=== PATIENT | female | born 1940 | race Caucasian/White ===

== ENCOUNTER 2021-04-08 18:32 | Inpatient (IN) | payer OTHER ==
[2021-04-08] MEDS ORDERED: ACETAMINOPHEN 500 MG TAB ONE (19:45)
[2021-04-08] MEDS ORDERED: ONDANSETRON 4 MG/2 ML VIAL ONE (19:46)
[2021-04-08] MEDS ORDERED: MORPHINE 2 MG/ML SYR ONE (19:46)
[2021-04-08] MEDS ORDERED: NA CHLORIDE 0.9% 500 ML ONE (19:47)
[2021-04-08] MEDS ORDERED: TETANUS & DIPHTHERIA TOX,ADULT 0.5 ML VIAL ONE (19:47)
[2021-04-08] MEDS ORDERED: NA CHLORIDE 0.9% 100 ML ONE (19:47)
[2021-04-08 20:05] LABS: Basophils % 0.4 % (0-1.3); Hematocrit 32.5 % (36.0-45.0); Lymphocytes % 7.1 % (15.3-44.8); MPV 7.8 fL (7.6-11.3); RBC Red Blood Cell Count 3.65 M/uL (3.86-4.86)
[2021-04-08] MEDS ORDERED: AMPICILLIN/SULBACTAM 3GM/VIAL ONE (20:27)
[2021-04-08 20:33] LABS: Albumin 3.9 g/dL (3.4-5.0); Bilirubin Direct 0.1 mg/dL (0-0.2); Bilirubin Total 0.6 mg/dL (0.2-1.0); Potassium 4.1 mmol/L (3.5-5.1); Protein, Total 8.7 g/dL (6.4-8.2)
[2021-04-08 20:34] LABS: Protime INR 1.18
[2021-04-08 21:08] LABS: Urine Blood 1+ (Negative); Urine Glucose Negative (Negative); Urine Protein Negative (Negative)
[2021-04-08 21:16] LABS: Blood Morphology Comment NOT SEEN (NOT SEEN); Platelet Estimate ADEQ; White Blood Cell Scan OK (OK)
--- NOTE | 2021-04-08 21:18 | ER ---
Nurse's Notes [facility] Name: Delia Beverly Age: 80 yrs Sex: Female : 1940 Arrival Date: 04/08/2021 Time: 18:33 Bed 7 Private MD: Karolyn Chung C Diagnosis: Dog Bite, Left Hand, Puncture wound, Palmar Laceration, Cellulitis, Lymphangitis Presentation: 04/08 18:36 Chief complaint: Patient states: Fever, fatigued. Bitten by dog 3day ago on left hand. ch5 Hand is red swollen and painful to touch. Coronavirus screen: Vaccine status: Patient reports receiving the 2nd dose of the covid vaccine. Ebola Screen: Patient negative for fever greater than or equal to 101.5 degrees Fahrenheit, and additional compatible Ebola Virus Disease symptoms Patient denies exposure to infectious person. Patient denies travel to an Ebola-affected area in the 21 days before illness onset. Initial Sepsis Screen: Does the patient meet any 2 criteria? No. Patient's initial sepsis screen is negative. Does the patient have a suspected source of infection? Yes: Other: Left hand. Risk Assessment: Do you want to hurt yourself or someone else? Patient reports no desire to harm self or others. 18:36 Method Of Arrival: EMS: [facility] 18:36 Acuity: KESHIA 3 ch5 20:22 Onset of symptoms was April 06, 2021. cw2 Triage Assessment: 18:39 General: Appears in no apparent distress. Behavior is calm, cooperative. Pain: ch5 Complains of pain in dorsal aspect of proximal phalanx of left little finger and inner aspect of left palm Pain currently is 5 out of 10 on a pain scale. Historical: - Allergies: 18:39 No Known Allergies; ch5 - Home Meds: 18:39 carvedilol 6.25 mg oral tab 1 tab 2 times per day [Active]; amlodipine 5 mg tab 1 tab ch5 BID for hypertension [Active]; - Immunization history:: Adult Immunizations up to date, Client reports receiving the 2nd dose of the Covid vaccine. - Social history:: Smoking status: Patient denies any tobacco usage or history of. Screenin:41 Abuse screen: Denies threats or abuse. Denies injuries from another. Nutritional ch5 screening: No deficits noted. Tuberculosis screening: No symptoms or risk factors identified. Fall Risk None identified. Assessment: 18:41 Reassessment: No changes from previously documented assessment. Pt admitted to taking ch5 all meds as directed. Left hand pain is 5/10 and increases with touch.. 20:20 General: Appears in no apparent distress. Behavior is calm, cooperative. Pain: cw2 Complains of pain in left hand Pain does not radiate. Pain currently is 5 out of 10 on a pain scale. Quality of pain is described as sharp, Pain began Is. Neuro: No deficits noted. Cardiovascular: No deficits noted. Rhythm is regular. Respiratory: No deficits noted. GI: No deficits noted. : No deficits noted. Injury Description: Bite sustained to left hand caused by a dog, is infected, was sustained 2 days ago. 23:15 Reassessment: Patient and/or family updated on plan of care and expected duration. Pain wg level reassessed. Pt ambulated to bathroom. Steady gait. Pt placed back on monitor. Bed down, rails up, call light in reach. Vital Signs: 18:36 BP 171 / 76; Pulse 90; Resp 18; Temp 100.4; Pulse Ox 95% on R/A; Weight 75.3 kg; Height ch5 5 ft. 5 in. (165.10 cm); Pain 5/10; 18:41 BP 142 / 55 RA Supine (auto/reg); Pulse 86; Resp 17 S; Temp 100.4(O); Pulse Ox 97% on ch5 R/A; Weight 75.3 kg; Height 5 ft. 5 in. (165.10 cm); Pain 5/10; 20:00 BP 141 / 57; Pulse 85; Resp 17; Temp 99.0; Pulse Ox 98% on R/A; cw2 21:23 Pain 3/10; cw2 22:00 BP 152 / 83; Pulse 78; Resp 17; Pulse Ox 98% on R/A; Pain 2/10; cw2 23:16 BP 134 / 60; Pulse 74; Resp 18; Pulse Ox 99% on R/A; Pain 0/10; wg 18:41 Body Mass Index 27.62 (75.30 kg, 165.10 cm) ch5 Vitals: 20:00 Cardiac Rhythm Assessment Regular Sinus rhythm. cw2 [place] Coma Score: 20:00 Eye Response: spontaneous(4). Verbal Response: oriented(5). Motor Response: obeys cw2 commands(6). Total: 15. ED Course: 18:33 Patient arrived in ED. am2 18:33 Prieto Trejo, ANDRE is Primary Nurse. ch5 18:33 Karolyn Chung MD is Private Physician. am2 18:39 Triage completed. ch5 18:39 Arm band placed on right wrist. ch5 18:41 Patient has correct armband on for positive identification. Bed in low position. Call 5 light in reach. Side rails up X2. Adult w/ patient. 19:04 Lele Khan MD is Attending Physician. 7 19:53 Hand Left 3 View XRAY In Process Unspecified. EDMS 20:17 Wound Culture Sent. cw2 20:17 Wound culture swab sent to lab. Inserted saline lock: 20 gauge in right antecubital cw2 area, using aseptic technique. Blood collected. 20:19 Door closed. Noise minimized. Moved to private room. Warm blanket given. PO fluids cw2 given. 20:19 Patient maintains SpO2 saturation greater than 95% on room air. cw2 21:06 Protime (+inr) Sent. wg 21:06 LFT's Sent. wg 21:06 Basic Metabolic Panel Sent. wg 21:06 CBC with Diff Sent. wg 21:15 Karolyn Chung MD is Hospitalizing Provider. [facility] 21:33 COVID-19 : Document "Date of Symptom Onset" if Symptomatic. Sent. wg 22:38 No provider procedures requiring assistance completed. cw2 22:38 Patient admitted, IV remains in place. cw2 Administered Medications: 20:00 Drug: Tylenol 1000 mg Route: PO; cw2 21:25 Follow up: Response: No adverse reaction cw2 20:00 Drug: morphine 2 mg Route: IVP; Site: right antecubital; cw2 21:23 Follow up: Pain 3/10 Adult cw2 20:05 Drug: Unasyn (ampicillin-sulbactam) 3 grams Route: IVPB; Infused Over: 30 mins; Site: cw2 right antecubital; 21:29 Follow up: IV Status: Completed infusion; IV Intake: 500ml cw2 20:06 Drug: NS 0.9% 500 ml Route: IV; Rate: bolus; Site: right antecubital; cw2 21:24 Follow up: IV Status: Completed infusion; IV Intake: 500ml cw2 20:06 Drug: Tetanus-Diphtheria Toxoid Adult 0.5 ml {Building Principal: [employer]. Exp: cw2 08/06/2021. Lot #: [id number]. } Route: IM; Site: right deltoid; 21:23 Follow up: Response: No adverse reaction cw2 20:07 Drug: Zofran (Ondansetron) 4 mg Route: IVP; Site: right antecubital; cw2 21:23 Follow up: Response: No adverse reaction cw2 21:24 Follow up: Response: Nausea is decreased cw2 Intake: 21:24 IV: 500ml; Total: 500ml. cw2 21:29 IV: 500ml; Total: 1000ml. cw2 Outcome: 20:22 Condition: good cw2 21:17 Decision to Hospitalize by Provider. [facility] 22:38 Admitted to Med/surg cw2 04/09 00:07 Patient left the ED. cw2 Signatures: Dispatcher [employer] EDMS Jessica Thomas Lele Sierra MD MD 7 Prieto Trejo, RN RN 5 Mauro Watt RN wg Williams, Christopher 2
--- NOTE | 2021-04-08 21:18 | EDPHYS ---
Physician Documentation [facility] Name: Delia Beverly Age: 80 yrs Sex: Female : 1940 Arrival Date: 04/08/2021 Time: 18:33 Bed 7 Private MD: Karolyn Chung C ED Physician Lele Khan HPI: 04/08 19:20 This 80 yrs old Female presents to ER via EMS with complaints of [facility] to [facility] Hand. Fever. 19:20 The patient was bitten on the left hand, by a dog, while approaching the animal, at [facility]. Onset: The symptoms/episode began/occurred 3 day(s) ago. Animal information: Animal's vaccinations are up to date. Secondary to the bite the patient reports erythema, a laceration, irregular shaped, pain, a puncture wound, that is moderate-sized, swelling, warmth. Associated signs and symptoms: Pertinent positives: erythema at site, fever, pain at site, swelling at site, tenderness, Nausea, generalized fatigue, Pertinent negatives: loss of consciousness, motor deficit, numbness distal to wound. Severity of symptoms: At their worst the symptoms were moderate, last night, in the emergency department the symptoms are unchanged. Patient states that she was bitten by her dog 3 days ago of the left hand. Since then she has developed swelling, pain, redness to the left hand that has now spread to the left forearm. She has also had fever, nausea, generalized fatigue since the dog bite occurred. She reports that the dogs immunizations are up-to-date including rabies vaccination. She denies any headache, chest pain, abdominal pain, cough, shortness of breath, vomiting, diarrhea, dizziness, numbness/tingling, or focal weakness.. Historical: - Allergies: 18:39 No Known Allergies; ch5 - Home Meds: 18:39 carvedilol 6.25 mg oral tab 1 tab 2 times per day [Active]; amlodipine 5 mg tab 1 tab ch5 BID for hypertension [Active]; - Immunization history:: Adult Immunizations up to date, Client reports receiving the 2nd dose of the Covid vaccine. - Social history:: Smoking status: Patient denies any tobacco usage or history of. ROS: 19:20 Eyes: Negative for injury, pain, redness, and discharge, ENT: Negative for injury, mh7 pain, and discharge, Neck: Negative for injury, pain, and swelling, Cardiovascular: Negative for chest pain, palpitations, and edema, Respiratory: Negative for shortness of breath, cough, wheezing, and pleuritic chest pain. 19:20 Back: Negative for injury and pain, : Negative for injury, bleeding, discharge, and swelling, Neuro: Negative for headache, weakness, numbness, tingling, and seizure, Psych: Negative for depression, anxiety, suicide ideation, homicidal ideation, and hallucinations, Allergy/Immunology: Negative for hives, rash, and allergies, Endocrine: Negative for neck swelling, polydipsia, polyuria, polyphagia, and marked weight changes, Hematologic/Lymphatic: Negative for swollen nodes, abnormal bleeding, and unusual bruising. 19:20 Abdomen/GI: Negative for abdominal pain, vomiting, diarrhea, constipation, abdominal cramps, abdominal distension, anorexia, dysphagia, hematemesis, black/tarry stool, rectal pain, rectal bleeding, bowel incontinence, flatulence. Exam: 19:20 Constitutional: This is a well developed, well nourished patient who is awake, alert, mh7 and in no acute distress. Head/Face: Normocephalic, atraumatic. Eyes: Pupils equal round and reactive to light, extra-ocular motions intact. Lids and lashes normal. Conjunctiva and sclera are non-icteric and not injected. Cornea within normal limits. Periorbital areas with no swelling, redness, or edema. Neck: Trachea midline, no thyromegaly or masses palpated, and no cervical lymphadenopathy. Supple, full range of motion without nuchal rigidity, or vertebral point tenderness. No Meningismus. Chest/axilla: Normal chest wall appearance and motion. Nontender with no deformity. No lesions are appreciated. Cardiovascular: Regular rate and rhythm with a normal S1 and S2. No gallops, murmurs, or rubs. Normal PMI, no JVD. No pulse deficits. Respiratory: Lungs have equal breath sounds bilaterally, clear to auscultation and percussion. No rales, rhonchi or wheezes noted. No increased work of breathing, no retractions or nasal flaring. Abdomen/GI: Soft, non-tender, with normal bowel sounds. No distension or tympany. No guarding or rebound. No evidence of tenderness throughout. Back: No spinal tenderness. No costovertebral tenderness. Full range of motion. 19:20 Neuro: Awake and alert, GCS 15, oriented to person, place, time, and situation. Cranial nerves II-XII grossly intact. Motor strength 5/5 in all extremities. Sensory grossly intact. Cerebellar exam normal. Normal gait. Psych: Awake, alert, with orientation to person, place and time. Behavior, mood, and affect are within normal limits. 19:20 Musculoskeletal/extremity: Extremities: noted in the left hand: bite, erythema, laceration, pain, puncture, swelling, tenderness, Healing laceration on lateral palmar aspect of hand and there is irregular shaped. There is swelling and erythema to the left hand fourth and fifth digits hand lateral aspect of left hand with erythema from hand to left volar forearm. There is no discharge from wound., ROM: intact in all extremities, Circulation is intact in all extremities. Sensation intact. Compartment Syndrome exam of affected extremity: is normal. no numbness, no tingling, no sensation deficit, no palor, no weak pulses, Joints: All joints appear normal with full range of motion. Weight bearing: able to fully bear weight, without difficulty. 19:20 Skin: cellulitis, that is moderate, irregular, on the left hand. Vital Signs: 18:36 BP 171 / 76; Pulse 90; Resp 18; Temp 100.4; Pulse Ox 95% on R/A; Weight 75.3 kg; Height ch5 5 ft. 5 in. (165.10 cm); Pain 5/10; 18:41 BP 142 / 55 RA Supine (auto/reg); Pulse 86; Resp 17 S; Temp 100.4(O); Pulse Ox 97% on ch5 R/A; Weight 75.3 kg; Height 5 ft. 5 in. (165.10 cm); Pain 5/10; 20:00 BP 141 / 57; Pulse 85; Resp 17; Temp 99.0; Pulse Ox 98% on R/A; cw2 21:23 Pain 3/10; cw2 22:00 BP 152 / 83; Pulse 78; Resp 17; Pulse Ox 98% on R/A; Pain 2/10; cw2 23:16 BP 134 / 60; Pulse 74; Resp 18; Pulse Ox 99% on R/A; Pain 0/10; wg 18:41 Body Mass Index 27.62 (75.30 kg, 165.10 cm) ch5 [place] Coma Score: 20:00 Eye Response: spontaneous(4). Verbal Response: oriented(5). Motor Response: obeys cw2 commands(6). Total: 15. MDM: 21:12 Differential diagnosis: superficial laceration, tendon injury, vascular injury, rabies, mh7 cellulitis. Rabies Status: Rabies immunization is not indicated. Data reviewed: vital signs, nurses notes, lab test result(s), CBC, electrolytes, radiologic studies, plain films. Data interpreted: Pulse oximetry: on room air is 98 %. Interpretation: normal. Counseling: I had a detailed discussion with the patient and/or guardian regarding: the historical points, exam findings, and any diagnostic results supporting the discharge/admit diagnosis, the presence of at least one elevated blood pressure reading (>120/80) during this emergency department visit, lab results, radiology results, the need for further work-up and treatment in the hospital. Response to treatment: the patient's symptoms have markedly improved after treatment. Physician consultation: Timbo Kyle MD was contacted at 21:00, regarding patient's condition, and will see patient in inpatient room, would like admission per Dr. Karolyn Chung MD. 21:17 Patient medically screened. [facility] 04/08 19:14 Order name: CBC with Diff [facility] 04/08 19:14 Order name: Basic Metabolic Panel [facility] 04/08 19:14 Order name: LFT's [facility] 04/08 19:14 Order name: Protime (+inr) [facility] 04/08 19:14 Order name: Ptt, Activated; Complete Time: 20:51 [facility] 04/08 19:14 Order name: Blood Culture Adult (2) [facility] 04/08 19:14 Order name: Lactate; Complete Time: 20:34 [facility] 04/08 19:14 Order name: Procalcitonin; Complete Time: 21:28 [facility] 04/08 19:15 Order name: CBC with Automated Diff; Complete Time: 21:28 [facility] 04/08 19:15 Order name: Basic Metabolic Panel; Complete Time: 20:34 [facility] 04/08 19:15 Order name: Liver (Hepatic) Function; Complete Time: 20:34 [facility] 04/08 19:15 Order name: Protime (+INR); Complete Time: 20:51 [facility] 04/08 19:33 Order name: Wound Culture [facility] 04/08 19:34 Order name: Wound Culture [facility] 04/08 19:14 Order name: Hand Left 3 View XRAY; Complete Time: 21:28 [facility] 04/08 21:07 Order name: Urine Dipstick-Ancillary; Complete Time: 21:28 [facility] 04/08 21:16 Order name: CBC Smear Scan; Complete Time: 21:28 [facility] 04/08 21:23 Order name: COVID-19 : Document "Date of Symptom Onset" if Symptomatic. lp1 04/08 21:27 Order name: CONS Physician Consult; Complete Time: 23:24 ED[facility] 04/08 21:27 Order name: EKG Electrocardiogram [facility] 04/08 22:28 Order name: SARS-COV-2 RT PCR EDMS Administered Medications: 20:00 Drug: Tylenol 1000 mg Route: PO; cw2 21:25 Follow up: Response: No adverse reaction cw2 20:00 Drug: morphine 2 mg Route: IVP; Site: right antecubital; cw2 21:23 Follow up: Pain 3/10 Adult cw2 20:05 Drug: Unasyn (ampicillin-sulbactam) 3 grams Route: IVPB; Infused Over: 30 mins; Site: cw2 right antecubital; 21:29 Follow up: IV Status: Completed infusion; IV Intake: 500ml cw2 20:06 Drug: NS 0.9% 500 ml Route: IV; Rate: bolus; Site: right antecubital; cw2 21:24 Follow up: IV Status: Completed infusion; IV Intake: 500ml cw2 20:06 Drug: Tetanus-Diphtheria Toxoid Adult 0.5 ml {[employer]: [employer] [facility]. Exp: cw2 08/06/2021. Lot #: [id number]. } Route: IM; Site: right deltoid; 21:23 Follow up: Response: No adverse reaction cw2 20:07 Drug: Zofran (Ondansetron) 4 mg Route: IVP; Site: right antecubital; cw2 21:23 Follow up: Response: No adverse reaction cw2 21:24 Follow up: Response: Nausea is decreased cw2 Disposition Summary: 04/08/21 21:17 Hospitalization Ordered Hospitalization Status: Inpatient Admission [facility] Provider: Chung, A mh7 Location: Telemetry/MedSurg (Inpatient) [facility] Condition: Stable mh7 Problem: new mh7 Symptoms: have improved mh7 Bed/Room Type: Standard [facility] Room Assignment: 204(04/08/21 23:04) cg Diagnosis - Dog Bite, Left Hand, Puncture wound, Palmar Laceration, Cellulitis, Lymphangitis [facility] Forms: - Medication Reconciliation Form mh7 - SBAR form [facility] Signatures: Dispatcher [employer] Adri Patel RN RN Lele Khan MD MD [facility] Prieto Trejo RN RN ch5 Prieto Dunlap cw2 Corrections: (The following items were deleted from the chart) 23:04 21:17 7 cg
--- NOTE | 2021-04-08 21:20 | RAD REPORT ---
EXAM DESCRIPTION: RAD - Hand Left 3 View - 04/08/2021 7:53 pm CLINICAL HISTORY: Swelling;Pain;Animal bite COMPARISON: None. FINDINGS: No fracture, dislocation or periosteal reaction noted. IP joint space narrowing with xuan nal spurring seen. First MCP joint space narrowing with partial subluxation of the first proximal pha lanx. No air or foreign body seen in the soft tissues. IMPRESSION: Left hand degenerative change as detailed. No acute bone or joint finding. No air or foreign body seen in the soft tissues.
[2021-04-08] MEDS ORDERED: ONDANSETRON 4 MG/2 ML VIAL IV PRN (21:22)
[2021-04-08] MEDS ORDERED: MORPHINE 2 MG/ML SYR IV PRN (21:22)
[2021-04-08] MEDS ORDERED: ACETAMINOPHEN 325 MG TABLET PO PRN (21:22)
[2021-04-09] MEDS ORDERED: AMPICILLIN/SULBACT 3 GM in NA CHLORIDE 0.9% 100 ML IVPB SCH ×2
[2021-04-09] MEDS: D5 0.45 NS 1,000 ML IV SCH ×3 (00:10→23:49)
[2021-04-09] MEDS: AMPICILLIN/SULBACT 3 GM in NA CHLORIDE 0.9% 100 ML IVPB SCH ×3 (04:44→20:53)
[2021-04-09] MEDS ORDERED: NA CHLORIDE 0.9% 100 ML ONE (04:55)
[2021-04-09] MEDS ORDERED: AMPICILLIN/SULBACTAM 3GM/VIAL ONE (05:02)
[2021-04-09 06:09] LABS: Absolute Lymphocytes (CBC) 1.8 K/uL (0.7-4.9); Basophils % 0.2 % (0-1.3); MPV 7.4 fL (7.6-11.3)
[2021-04-09 06:26] LABS: Potassium 3.6 mmol/L (3.5-5.1)
[2021-04-09] MEDS: carvediloL 6.25 MG TAB PO SCH ×2 (08:44→17:55)
[2021-04-09] MEDS: LOSARTAN POTASSIUM 50 MG TABLET PO SCH (08:45)
[2021-04-09] MEDS: AMLODIPINE 5 MG TAB PO SCH ×2 (08:45→20:55)
[2021-04-09] MEDS: METFORMIN ER 500 MG TAB PO SCH ×2 (08:46→17:55)
[2021-04-09] MEDS: PANTOPRAZOLE 40MG TABLET PO SCH (08:47)
--- NOTE | 2021-04-09 09:37 | HP ---
Date of Admission: 04/09/2021 Chief Complaint: Dog bite. History Of Present Illness: This is an 80-year-old very pleasant female patient who reported that on of this week, which is 3 days ago, her dog, who has been fully vaccinated and has not been ill lately was chewing on a piece of puzzle and she tried to get it out of his mouth and the dog ended up biting her over her left hand. She did not seek any medical attention until today the reason she came in to the ER because she was noticing increasing pain, redness and swelling of the left forearm and left hand. She also had some fever. Denies any shortness of breath, nausea, vomiting, diarrhea, etc. After she came into emergency room yesterday, she received a tetanus diphtheria toxoid intramuscular injection and IV antibiotic, Unasyn was started and the patient was admitted to the hospital. This morning when I saw her she was feeling better compared to yesterday. Allergies: NO KNOWN ALLERGIES. Medications: Amlodipine 5 mg 2 times a day, aspirin 81 mg daily, carvedilol 6.25 mg 2 times a day, Ferrocite 1 tablet by mouth daily, Tradjenta 5 mg by mouth daily, losartan 100 mg daily, metformin 1000 mg 2 times a day with meal, omeprazole 40 mg daily, rosuvastatin 5 mg once a week. Review of Systems: Dermatology: As mentioned above. Musculoskeletal: As mentioned above. Constitutional: As mentioned above. All other systems reviewed and negative. Past Medical History: Significant for type 2 diabetes mellitus, hypertension, mixed hyperlipidemia, gastroesophageal reflux disease, nonalcoholic fatty liver disease, hepatic cyst, diverticulosis. Past Surgical History: Tonsillectomy, appendectomy, right foot surgery. Family History: Father , had colon cancer. Mother , had cerebral aneurysm. Sister with heart disease. Social History: Negative for smoking. Use of alcohol, rarely uses alcohol. Immunization History: The patient's first dose of COVID-19 vaccine was September 02, 2020, second dose was September 28, 2020 and last tetanus diphtheria toxoid vaccine was on April 08, 2021. Physical Examination: Vital Signs: When she first came into emergency room; temperature 100.4, pulse 90, respiratory rate 18, blood pressure 171/76, oxygen saturation 95%. Height not recorded, according to outpatient her height 65 inches and her weight is 170 pounds. General: Awake, alert, oriented, not in distress. HEENT: Head atraumatic, normocephalic. Conjunctivae nonerythematous. Sclerae white. Mouth, no thrush or edema noted. Ears/Nose, no mass, lesion, discharge noted. Neck: Supple. No JVD, lymph nodes, bruit, thyromegaly noted. Lungs: Bilateral good equal air entry. Clear to auscultation. No rhonchi. No rales. Heart: Normal heart sounds, no murmur or gallop. Abdomen: Soft, bowel sounds normal. No guarding, rigidity, tenderness, mass, hepatosplenomegaly, distention, or bruit noted. Extremities: No leg edema. No calf tenderness. Left upper extremity shows mild swelling of the left dorsum hand with pink discoloration of the skin involving entire left dorsum hand and most of the fingers with mild swelling. This area is warm to touch. Her left anterior forearm has red streaks going from the wrist all the way to her upper forearm region. It is slightly warm to touch and on the left palmar aspect she has a superficial laceration type of area from dog bite. There is no discharge no bleeding. Skin: No rash, ulcer, cellulitis. Lymphatics: No lymph node enlargement in neck, supraclavicular, infraclavicular region. Neuro: No focal neurological deficit. Chest: Unremarkable. External Genitalia: Deferred. Rectal: Deferred. Laboratory Data: Yesterday; white count 14.1, hemoglobin 10.9, platelets 238. This morning; white count 8.7, hemoglobin 9.7, platelets 209. Yesterday; sodium 137, potassium 4.1, chloride 107, bicarb 23, BUN 13, creatinine 0.97, glucose 171. Liver function tests unremarkable. Lactic acid 1.2. Procalcitonin less than 0.05. Today; sodium 140, potassium 3.6, chloride 111, bicarb 23, BUN 12, creatinine 0.84, glucose 142. INR 1.18. Urinalysis; 1+ blood, otherwise negative. COVID-19 test negative. Left hand x-ray shows evidence of degenerative changes. No acute bone or joint finding. No air or foreign body seen. Impression: 1. Cellulitis, left upper extremity. 2. Dog bite. 3. Anemia. 4. Type 2 diabetes mellitus. 5. Hypertension. 6. Mixed hyperlipidemia. 7. Gastroesophageal reflux disease. 8. Diverticulosis. 9. Nonalcoholic fatty liver disease. Plan: We will admit the patient to hospital for further evaluation and management of this problem. The patient is appropriate for inpatient and is expected to spend 2 midnights in hospital. I will go ahead and keep her n.p.o. at this point. Consultation from Hand Surgeon has been requested. He will evaluate her this morning and make a decision if any debridement is necessary or not. Meanwhile, we will continue current empiric antibiotic which is Unasyn while in the hospital. I would like to continue IV antibiotic for another day or 2 days and possible discharge to go home either tomorrow or day after tomorrow. Upon discharge, our plan is to discharge her to go home with oral antibiotic which will be Augmentin. Home medications will be continued per order. We will monitor fingerstick blood sugar with sliding scale insulin and hold antihypertensive medication if systolic blood pressure less than 130. Details and plan of treatment discussed with the patient. I will see her tomorrow morning for followup. BALJIT/MODL Voice ID: [id number] MTDD
[2021-04-10 00:36] VITALS: BMI 28.3
[2021-04-10] MEDS: D5 0.45 NS 1,000 ML IV SCH ×3 (04:00→23:02)
[2021-04-10] MEDS: AMPICILLIN/SULBACT 3 GM in NA CHLORIDE 0.9% 100 ML IVPB SCH ×3 (04:50→20:03)
[2021-04-10] MEDS: carvediloL 6.25 MG TAB PO SCH ×2 (05:16→17:34)
[2021-04-10] MEDS: METFORMIN ER 500 MG TAB PO SCH ×2 (08:00→16:29)
[2021-04-10] MEDS: AMLODIPINE 5 MG TAB PO SCH ×2 (09:31→20:02)
[2021-04-10] MEDS: PANTOPRAZOLE 40MG TABLET PO SCH (09:31)
[2021-04-10] MEDS: LOSARTAN POTASSIUM 50 MG TABLET PO SCH (09:31)
[2021-04-10] MEDS ORDERED: NA CHLORIDE 0.9% 1,000 ML ONE (10:56)
[2021-04-10] MEDS: LIDOCAINE 1% MPF 30 ML VIAL ONE ×2 (12:01→12:14)
[2021-04-10] MEDS ORDERED: propofoL 200 MG/20 ML VIAL IV ONE (12:40)
[2021-04-10] MEDS ORDERED: FENTANYL CITR 100 MCG/2 ML ONE (12:40)
[2021-04-10] MEDS ORDERED: LIDOCAINE 2% MPF 5 ML VIAL ONE (12:40)
[2021-04-10] MEDS ORDERED: KETOROLAC 30 MG/ML INJ ONE (12:40)
--- NOTE | 2021-04-10 15:07 | OP ---
Surgeon: Timbo Kyle MD Preoperative Diagnosis: Dog bite to the left hand. Postoperative Diagnosis: Dog bite to the left hand. Procedure Performed: Debridement of skin tissue, release of A1 urbano. Anesthesia: General. Procedure In Detail: After satisfactory general anesthesia, left hand prepped with Betadine scrub an d paint. Dry sterile drapes were placed. The arm was elevated. Tourniquet was inflated to 250. Kelly nd was placed on roll lock table. Incisions were made around the open wound. It was tracking up [place]. Scalpel was used to make incision in the distal Gerda-type incision and dissected down. Cu ltures were taken. There was cloudy fluid and the A1 urbano was opened. The sheath was swollen. Cu ltures were taken at the A1 level. The wound was then jet lavaged, irrigated with 3 L of dilute Beta dine solution. Tourniquet was released. Electrocautery was used for hemostasis. Wound was packed w ith Betadine-soaked quarter-inch Nu Gauze, 2-inch Rachell and Kerlix. The patient tolerated the proced ure well and returned to recovery. ALFONSO/KAYLIN Voice ID: [id number] Report ID: [id number]
[2021-04-10] MEDS: CODEINE 30MG/APAP 300MG TAB PO PRN ×2 (16:28→23:54)
[2021-04-11] MEDS: AMPICILLIN/SULBACT 3 GM in NA CHLORIDE 0.9% 100 ML IVPB SCH ×3 (05:43→21:04)
[2021-04-11] MEDS: carvediloL 6.25 MG TAB PO SCH ×2 (05:44→17:59)
--- NOTE | 2021-04-11 06:23 | PN ---
Date of Progress Note: 04/10/2021 Subjective: The patient was seen this morning for followup. No new complaints or problems reported by the patient. Lying in bed, not in distress. Overall, her pain, swelling and redness from left monet nd and left forearm are significantly better today than yesterday. Objective: Vital Signs: Reviewed. HEENT: Unremarkable. Lungs: Clear to auscultation. Heart: Sounds normal. Abdomen: Soft. Bowel sounds normal. No guarding, rigidity, tenderness, or distention. Extremity: No leg edema. Left upper extremity has shown significant improvement. The redness from the left forearm has completely resolved. Redness and swelling from the left dorsum are significantl y better compared to before. Impression: 1.Cellulitis, left upper extremity. 2.Dog bite. 3.Hypertension. 4.Type 2 diabetes mellitus. Plan: We will continue current medications, continue current antibiotic, Unasyn. Details were discu ssed with hand surgeon, Dr. Kyle who evaluated the patient this morning and he will take the pat ient to surgery for debridement procedure. BALJIT/MODL Voice ID: [id number] Report ID: [id number]
[2021-04-11] MEDS ORDERED: D50W 25 GM/50 ML SYRINGE IV PRN (06:34)
[2021-04-11] MEDS ORDERED: GLUCAGON 1 MG/VIAL IM PRN (06:34)
[2021-04-11 07:11] LABS: Absolute Lymphocytes (CBC) 1.2 K/uL (0.7-4.9); Basophils % 0.6 % (0-1.3); Hematocrit 27.7 % (36.0-45.0); Lymphocytes % 19.8 % (15.3-44.8); MPV 7.5 fL (7.6-11.3); RBC Red Blood Cell Count 3.17 M/uL (3.86-4.86)
[2021-04-11] MEDS: INSULIN -REGULAR HUMAN 50 UNIT/0.5 ML ML SQ SCH ×4 (07:30→21:00)
[2021-04-11 07:33] LABS: Magnesium 1.7 mg/dL (1.8-2.4); Potassium 3.6 mmol/L (3.5-5.1)
[2021-04-11] MEDS: LOSARTAN POTASSIUM 50 MG TABLET PO SCH (08:19)
[2021-04-11] MEDS: METFORMIN ER 500 MG TAB PO SCH ×2 (08:19→16:42)
[2021-04-11] MEDS: PANTOPRAZOLE 40MG TABLET PO SCH (08:20)
[2021-04-11] MEDS: AMLODIPINE 5 MG TAB PO SCH ×2 (08:20→21:04)
[2021-04-11] MEDS: CODEINE 30MG/APAP 300MG TAB PO PRN (11:06)
[2021-04-12] MEDS: AMPICILLIN/SULBACT 3 GM in NA CHLORIDE 0.9% 100 ML IVPB SCH ×3 (05:27→13:00)
[2021-04-12] MEDS: carvediloL 6.25 MG TAB PO SCH (05:29)
[2021-04-12] MEDS ORDERED: MAGNESIUM SULFATE 1 gm IVPB 1 GM/100 ML BAG IV ONE (06:58)
[2021-04-12] MEDS: INSULIN -REGULAR HUMAN 50 UNIT/0.5 ML ML SQ SCH ×2 (07:30→11:30)
[2021-04-12] MEDS: METFORMIN ER 500 MG TAB PO SCH (08:00)
[2021-04-12] MEDS: LOSARTAN POTASSIUM 50 MG TABLET PO SCH (08:14)
[2021-04-12] MEDS: PANTOPRAZOLE 40MG TABLET PO SCH (08:14)
[2021-04-12] MEDS: AMLODIPINE 5 MG TAB PO SCH (08:14)
[2021-04-12 09:10] VITALS: O2SAT 97
--- NOTE | 2021-04-12 09:31 | PN ---
Date of Progress Note: 04/11/2021 Subjective: The patient was seen this morning for followup. No new complaints or problems reported by the patient. She was lying in bed, not in distress. Vital signs reviewed. She had surgery done for debridement of left hand by Dr. Kyle yesterday. Objective: Vital Signs: Reviewed. Vital Signs: Reviewed. HEENT: Unremarkable. Lungs: Clear to auscultation. Heart: Sounds normal. Abdomen: Soft. Bowel sounds normal. No guarding, rigidity, tenderness, or distention. Extremities: No leg edema. Left upper extremity, left hand has dressing present. Impression: 1.Cellulitis, left upper extremity. 2.Dog bite. 3.Hypertension. Plan: We will continue current medications, continue current antibiotics, and we will continue to fo llow with hand surgeon who is planning to do another debridement procedure tomorrow and we might be a ble to discharge her to go home after that tomorrow. BALJIT/MODL Voice ID: [id number] Report ID: [id number]
[2021-04-12] MEDS ORDERED: NA CHLORIDE 0.9% 1,000 ML ONE (12:55)
[2021-04-12] MEDS ORDERED: LIDOCAINE 1% MPF 30 ML VIAL ONE (13:27)
[2021-04-12 14:08] VITALS: BP 158/72; TEMP 97.7
--- NOTE | 2021-04-13 00:19 | OP ---
Surgeon: Timbo Kyle MD Preoperative Diagnosis: Open wound over the left hand. Postoperative Diagnosis: Open wound over the left hand. Procedure Performed: Debridement of skin and subcu tissue, closure, 8 cm surgical dressing. Anesthesia: Local. Procedure In Detail: After satisfactory local, hand was prepped with Betadine scrub and paint. Dry s terile drapes were placed in the usual manner. The wound with jet lavage irrigated with 3 L of Betad ine solution. skin and subcutaneous tissue. Wound was closed with vertical mattress, hao f buried mattress simple sutures of 4-0 Prolene. Dressed with Xeroform and Kerlix. The patient attila rated the procedure well and returned to recovery. ALFONSO/KAYLIN Voice ID: [id number] Report ID: [id number]
--- NOTE | 2021-04-13 06:23 | DS ---
Date of Discharge: 04/12/2021 Disposition: Discharged to go home. Physical Examination: HEENT: Unremarkable. Lungs: Clear to auscultation. Heart: Sounds normal. Abdomen: Soft. Bowel sounds normal. No guarding, rigidity, tenderness, distention. Extremities: No leg edema. Left upper extremity dressing present. No signs of bleeding. Discharge Medications And Instructions: 1. Continue all prior home medications. 2. Take Augmentin 875 mg 1 tablet by mouth 2 times a day for 10 days, take it with food. 3. Follow up at my office next week on Saturday at 10 a.m. 4. Follow with Dr. Kyle as per his instruction. Laboratory Data: Upon admission; white count 14.1, hemoglobin 10.9, platelets 238. Yesterday; white count 6.2, hemoglobin 9.6, platelets 208. Last chemistry from yesterday; sodium 142, potassium 3.6, chloride 111, bicarb 24, BUN 8, creatinine 0.81, glucose 147, magnesium 1.7. Upon admission; sodium 137, potassium 4.1, chloride 107, bicarb 23, BUN 13, creatinine 0.97, glucose 171, lactic acid 1.2. Procalcitonin less than 0.05. Hospital Course: An 80-year-old female patient admitted to the hospital with dog bite. Please see dictated H and P for more information. After the patient was evaluated in ER, she was admitted to the hospital. She was started on IV antibiotic, Unasyn. Dr. Kyle from Hand Surgery was consulted who did debridement procedure twice, once on Saturday and second time today. The patient was discharged to go home in stable condition today. Her area of cellulitis involving left dorsum hand has significantly improved. Area of cellulitis changes from forearm has completely resolved and overall there is 90% improvement from the time of admission till today. The patient was discharged to go home in stable condition. The patient did receive her tetanus diphtheria toxoid vaccine when she came into emergency room. Final Diagnoses: 1. Cellulitis, left upper extremity. 2. Dog bite. 3. Anemia, unspecified. 4. Type 2 diabetes mellitus. 5. Hypertension. 6. Mixed hyperlipidemia. 7. Gastroesophageal reflux disease. 8. Diverticulosis. 9. Nonalcoholic fatty liver disease. BALJIT/MODL Voice ID: [id number] Report ID: [id number]
== END 2021-04-12 16:00 | disposition home or self-care (01) | DRG 581 ==
LOC: ER 18:32 → ERHOLD 21:19 → 2ND 23:45
PROVIDERS: ADMIT Internal Medicine; ATTEND Internal Medicine
PROC: 0LN Tendons, Release (ICD-10-PCS; 2021-04-10)
PROC: 0JDK3ZZ Extraction of Left Hand Subcutaneous Tissue and Fascia, Percutaneous Approach (ICD-10-PCS; principal; 2021-04-10 12:15)
PROC: 0JDK3ZZ Extraction of Left Hand Subcutaneous Tissue and Fascia, Percutaneous Approach (ICD-10-PCS; 2021-04-12)
DX: L03.114 Cellulitis of left upper limb (principal); S60.572A Other superficial bite of hand of left hand, initial encounter; W54.0XXA Bitten by dog, initial encounter; Y92.009 Unspecified place in unspecified non-institutional (private) residence as the place of occurrence of the external cause; D64.9 Anemia, unspecified; E11.9 Type 2 diabetes mellitus without complications; I10 Essential (primary) hypertension; E78.2 Mixed hyperlipidemia; K21.9 Gastro-esophageal reflux disease without esophagitis; K57.90 Diverticulosis of intestine, part unspecified, without perforation or abscess without bleeding; K76.0 Fatty (change of) liver, not elsewhere classified; Z20.822 Contact with and (suspected) exposure to COVID-19
CPT/HCPCS: 36415; 80048; 80076; 81003; 82947; 83605; 83735; 84145; 85025; 85610; 85730; 87040; 87070; 87075; 87205; 88304; 90471; 90714; 94760; 96365; 96375; 99285; J0295; J2270; J2405; J2704; J3010; J3475; J7030; J7040; J7799; U0003